=== PATIENT | male | born 1950 | race Caucasian/White ===

== ENCOUNTER → 2016-12-06 | Day surgery (SDC) | payer MEDICARE ==
[~2016-12-06] VITALS: Ht 177.8 cm; Wt 93.0 kg
[~2016-12-06] MED LIST: 0.9% Sodium Chloride 1,000 ML IV PRN; Sodium Chloride LOK Flush 10 mL Syringe IV PRN; fentaNYL-PF 50 mCg/mL 2 mL Inj IVPUSH PRN
[2016-12-06 12:07] VITALS: BP 132/83; PULSE 66; RESP 16; O2SAT 100
[2016-12-06 13:22] VITALS: BP 111/71; PULSE 66; O2SAT 95
[2016-12-06 13:36] VITALS: BP 104/63; PULSE 73; O2SAT 96
[2016-12-06 13:37] VITALS: BP 113/72; PULSE 65; O2SAT 95
--- NOTE | 2016-12-06 13:59 | ENDO ---
[address] [address] ENDOSCOPY PROCEDURE PATIENT: MARICRUZ GOEL : 1950 MR#: [id number] ADMIT: 12/06/2016 JOB ID: [id number] DATE: 12/06/2016 PRIMARY PROVIDER: Niall Claros M.D. PROCEDURE: Colonoscopy with hot snare polypectomy. INDICATIONS: A 66-year-old male with a personal history of colon polyps returning for surveillance. EQUIPMENT: PCF H 190 L. SEDATION: 1. 10 mg Versed. 2. 200 mcg fentanyl. COMPLICATIONS: None identified. BOWEL PREPARATION: Fair. PROCEDURAL INFORMATION: After the risks and benefits were explained, written and verbal informed consent was obtained. The patient was brought into the endoscopy suite and placed in the left lateral decubitus position. Sedation was achieved using the above-stated medications with the addition of oxygen via nasal cannula. Digital rectal examination was accomplished. No significant pathology appreciated. The scope was introduced into the rectum and advanced to the cecum as identified by the appendiceal orifice and ileocecal valve. The scope was slowly withdrawn to carefully examine the mucosa for any defects or lesions. Multiple direct views were made through the dentate line for exclusion of pathology. The colon was decompressed. The scope removed from the patient who tolerated the procedure well. FINDINGS: In the right colon, there were two polyps removed by way of hot snare. The small polyp was perhaps about 4-5 mm. The larger of the two polyps was perhaps 7-8 mm. No other significant pathology was appreciated throughout. Navigation was again challenging. The patient has a moderately tortuous sigmoid region. ENDOSCOPIC DIAGNOSES: Colon polyps. RECOMMENDATIONS: 1. Await histopathology. 2. Repeat colonoscopy five years.
--- NOTE | 2016-12-08 13:57 | PATH ---
SURGICAL PATHOLOGY Attending Physician:Jayne Shetty CASE STATUS: Signed Out PATIENT NAME: MARICRUZ GOEL PID: [id number] : 1950 DATE COLLECTED:12/06/2016 00:00 SPECIMEN: Colon, Polyp CLINICAL HISTORY: 1). COLON POLYPS X 2 FINAL DIAGNOSIS: Colon Polyps x2, Biopsies: Tubular adenoma in each piece. ICD10: D12.6 GROSS DESCRIPTION: The specimen is received in one formalin filled container labeled with the patient's name, sublabeled "colon polyps X2" and consists of 4 portions of tissue which aggregate to zero 3 x 0.3 x 0.3 CM. The specimen is entirely submitted in one cassette. 12/07/2016DC ICD-9 CODES: CPT CODES: 1: 25997 Electronically Signed Out Ervin Corenjo MD, Ph.D. [facility] Pathology [facility] [address], [place] [address] Technical component performed at [facility], [facility] [address], [place], [address]
== END | disposition home or self-care (01) ==
LOC: END 00:38
PROVIDERS: ATTEND Internal Medicine Gastroenterology
DX: Z12.11 Encounter for screening for malignant neoplasm of colon (principal); D12.2 Benign neoplasm of ascending colon; Z86.010 Personal history of colon polyps; Z80.0 Family history of malignant neoplasm of digestive organs; Z87.891 Personal history of nicotine dependence
CPT/HCPCS: 45385; 99153; G0500; J2250; J3010; J7030